=== PATIENT | female | born 1955 | race Caucasian/White ===

== ENCOUNTER 2024-03-01 15:26 | Day surgery (SDC) | payer MEDICARE ==
[2024-03-01] MEDS ORDERED: Decadron 4 MG INJ IV ONE (15:27)
[2024-03-01] MEDS ORDERED: LIDOCAINE HCL 1% AMPUL 5 ML IJ ONE (15:27)
[2024-03-01] MEDS ORDERED: Sodium Chloride 0.9(Preservative Free) 10 ML IJ ONE (15:27)
--- NOTE | 2024-03-01 20:47 | XRAY ---
Indication: Cervical HUANG. Intraoperative fluoroscopy provided for 38 seconds. 4 digital spot images submitted for interpretation demonstrates posterior needle tip projecting posterior to cervical thoracic junction. Small amount of contrast injected for needle tip placement. Correlate with intraoperative findings/report.
--- NOTE | 2024-03-02 09:54 | XRAY ---
38 seconds of fluoroscopy were used in surgery for a cervical HUANG.
== END 2024-03-01 18:14 | disposition home or self-care (01) ==
LOC: SDC-PAIN 15:26
PROVIDERS: ATTEND Psychiatry & Neurology Pain Medicine
DX: M54.12 Radiculopathy, cervical region (principal)
CPT/HCPCS: 62321; 72040; 77003; J1100; Q9966